=== PATIENT | male | born 2000 | race African-American/Black ===

== ENCOUNTER 2021-12-22 19:48 | Emergency (ER) | payer OTHER ==
[~2021-12-22] VITALS: Ht 177.8 cm; Wt 79.2 kg
[2021-12-22 20:50] LABS: APPEARANCE, URINE CLEAR (CLEAR); BACTERIA, URINE AUTO NEGATIVE (NEGATIVE); BILIRUBIN, URINE AUTO NEGATIVE (NEGATIVE); BLOOD, URINE BLOOD NEGATIVE (NEGATIVE); COLOR, URINE COLORLESS (YELLOW); GLUCOSE, URINE (UA) AUTO NEGATIVE (NEGATIVE); KETONE, URINE AUTO NEGATIVE (NEGATIVE); LEUKOCYTE ESTERASE, URINE AUTO TRACE (NEGATIVE); NITRITE, URINE AUTO NEGATIVE (NEGATIVE); PROTEIN, URINE AUTO NEGATIVE (NEGATIVE); RBC, URINE AUTO 0 /HPF (0-3); SPECIFIC GRAVITY URINE AUTO 1.002 (1.002-1.035); SQUAMOUS EPITHELIAL CELL UR AU 0 /HPF (0-6); UROBILINOGEN, URINE AUTO 0.2 mg/dL (0.0-2.0); WBC, URINE AUTO 1 /HPF (0-3)
[2021-12-22 22:15] LABS: GC DNA AMPLIFICATION NEGATIVE (NEGATIVE)
[2021-12-22] MEDS ORDERED: DOXY-443 PO (22:39)
[2021-12-22] MEDS ORDERED: DOXYCYCLINE HYCLATE 100MG TABLET PO ONE (22:40)
[2021-12-22 22:53] VITALS: BP 113/62
== END 2021-12-22 22:53 | disposition home or self-care (01) ==
LOC: M ED 19:48
DX: A74.9 Chlamydial infection, unspecified (principal)